=== PATIENT | female | born 2000 | race Caucasian/White ===

== ENCOUNTER 2019-05-04 12:55 | Emergency (ER) | payer OTHER ==
[~2019-05-04] VITALS: Ht 162.6 cm; Wt 58.2 kg
--- NOTE | 2019-05-04 13:15 | NUR ---
FIRST CONTACT WITH PT. PT PRESENTS WITH C/O VAGINAL BLOOD LOSS AFTER AN THAT WAS PERFORMED ON 04/24/19. PT HAS BEEN BLEEDING "CONTINUOUSLY SINCE THE PROCEDURE". [facility]LLOW [facility]PT AND THEY RECOMMENDED THAT SHE COME HERE. PT REPORTS THAT SHE SOAKED THROUGH A SUPER ABSORBENCY PAD IN 2 HOURS. PT IS ON SERIAL VS. NO SIGNS OF DISTRESS AND PT APPEARS IN STABLE CONDITION.
--- NOTE | 2019-05-04 13:26 | NUR ---
MD ROUNDED ON PT AND DISCUSSED POC WITH PT. PT VERBALIZED UNDERSTANDING.
[2019-05-04] MEDS ORDERED: SODIUM CHLORIDE FLUSH 10ML SYR IVF ONE (13:30)
[2019-05-04 13:41] LABS: BASOPHILS # (AUTO) 0.02 x10^3/uL (0-0.1); BASOPHILS % (AUTO) 0 % (0-1); EOSINOPHILS # (AUTO) 0.11 x10^3/uL (0-0.4); EOSINOPHILS % (AUTO) 1 % (1-7); LYMPHOCYTES # (AUTO) 1.79 x10^3/uL (1-3.4); LYMPHOCYTES % (AUTO) 13 % (22-44); MD NO; MEAN CORPUSCULAR HEMOGLOBIN 32.5 pg (27.0-34.8); MEAN CORPUSCULAR HGB CONC 33.7 g/dL (32.4-35.8); MEAN CORPUSCULAR VOLUME 96.4 fL (80-100); MEAN PLATELET VOLUME 7.7 fL (7.4-10.4); MONOCYTES # (AUTO) 0.02 x10^3/uL (0.2-0.8); MONOCYTES % (AUTO) 0 % (2-9); NEUTROPHILS % (AUTO) 86 % (42-75); PLATELET COUNT 312 x10^3/uL (130-400); RED BLOOD COUNT 2.75 x10^6/uL (3.82-5.3); RED CELL DISTRIBUTION WIDTH 13.1 % (9.6-15.2)
[2019-05-04 13:51] LABS: ALBUMIN 3.4 g/dL (3.4-5.0); ANION GAP 7 mmol/L (5-15); CALCIUM 8.7 mg/dL (8.5-10.1); CHLORIDE 109 mmol/L (98-107)
--- NOTE | 2019-05-04 15:22 | NUR ---
DR Belgica ELIZABETH SPOKE WITH DR Belgica ELIZABETH.
--- NOTE | 2019-05-04 15:31 | NUR ---
PT RESTING IN BED. AWAITING PPAP COORDINATOR PAGED AND RESPONSE FROM PPAP COORDINATOR MD.
--- NOTE | 2019-05-04 15:47 | NUR ---
pt set up for pelvic exam.
--- NOTE | 2019-05-04 16:08 | NUR ---
Pt states she has some mild cramping, but that it is tolerable. Pt denies any needs, no signs of distress. vss.
[2019-05-04 16:14] VITALS: BP 112/63
--- NOTE | 2019-05-04 16:28 | NUR ---
pt discharged with discharge instructtions and follow up instructions.
== END 2019-05-04 16:31 | disposition home or self-care (01) ==
LOC: ED 14:37
DX: O03.9 Complete or unspecified spontaneous abortion without complication (principal); R51 Headache
CPT/HCPCS: 36415; 76801; 80048; 82040; 84702; 85025; 86901; 99284